=== PATIENT | male | born 1995 ===

== ENCOUNTER 2022-02-09 14:14 | Emergency (ER) | payer MEDICAID ==
[2022-02-09] MEDS ORDERED: LORazepam 2 MG/ML SDV ONE (14:22)
[2022-02-09] MEDS ORDERED: LORazepam 2 MG/ML SDV IVPUSH ONE (14:25)
[2022-02-09] MEDS ORDERED: Sodium Chloride 0.9% 1,000 ML IV ONE (14:26)
[2022-02-09 15:14] LABS: BLOOD UREA NITROGEN,BUN 13 mg/dL (7.0-18.0); CARBON DIOXIDE,CO2 12.5 mmol/L (21.0-32.0); CHLORIDE,CL 99 mmol/L (98-107); GLUCOSE RANDOM 90 mg/dL (74-106); SODIUM,NA 139 mmol/L (136-148)
[2022-02-09 15:26] LABS: ESTIMATED GFR 52 mL/min (>60)
[2022-02-09] MEDS ORDERED: Iopamidol 755 MG/ML 500 ML Multipack Bottle IVPUSH STA (16:14)
[2022-02-09] MEDS ORDERED: Lactated Ringers 1,000 ML IV ONE (17:11)
[2022-02-09 17:24] LABS: CORONAVIRUS COVID-19 NAA NEGATIVE (NEGATIVE); INFLUENZA A NAA NEGATIVE (NEGATIVE); INFLUENZA B NAA NEGATIVE (NEGATIVE); RESPIRATORY SYNCYTIAL VIR NAA NEGATIVE (NEGATIVE)
== END 2022-02-09 18:56 ==
LOC: MW.ED 14:14
DX: S80.811A Abrasion, right lower leg, initial encounter (principal); Z20.822 Contact with and (suspected) exposure to COVID-19; W17.89XA Other fall from one level to another, initial encounter
CPT/HCPCS: 0241U; 36415; 51702; 70450; 71045; 71260; 72125; 73030; 73100; 74177; 80053; 80305; 82550; 85025; 96361; 96374; 99285; J2060; J7030; J7120; Q9967

== ENCOUNTER 2022-02-10 17:32 | Emergency (ER) | payer OTHER | END 2022-02-10 19:32 | LOC: MW.ED 17:32 | DX: R41.82 Altered mental status, unspecified (principal) | CPT/HCPCS: 70450; 70450-26; 99284 ==

== ENCOUNTER 2022-02-26 14:13 | Emergency (ER) | payer MEDICAID ==
[2022-02-26] MEDS ORDERED: Lactated Ringers 1,000 ML IV STA ×2 (14:37→18:04)
[2022-02-26] MEDS ORDERED: Piperacillin/Tazobactam 4.5 GM in Sodium Chloride 0.9% 100 ML IV ONE (14:56)
[2022-02-26] MEDS ORDERED: Morphine 4 MG/ML Syringe IVPUSH STA (14:58)
[2022-02-26] MEDS ORDERED: VANCOmycin 1.5 GM/300 ML 1.5 GM in Premix Bag 1 BAG IV ONE (15:00)
[2022-02-26 15:46] LABS: CARBON DIOXIDE,CO2 28.9 mmol/L (21.0-32.0); POTASSIUM,K 4.1 mmol/L (3.5-5.1)
[2022-02-26 16:10] LABS: CORONAVIRUS COVID-19 NAA NEGATIVE (NEGATIVE); INFLUENZA A NAA NEGATIVE (NEGATIVE); INFLUENZA B NAA NEGATIVE (NEGATIVE); RESPIRATORY SYNCYTIAL VIR NAA NEGATIVE (NEGATIVE)
[2022-02-26] MEDS ORDERED: HYDROmorphone 2 MG/ML Syringe IVPUSH STA (17:50)
[2022-02-26] MEDS ORDERED: Clindamycin Phosphate in D5W 900 MG in Premix Bag 1 BAG IV ONE ×2 (18:04)
== END 2022-02-26 18:45 ==
LOC: MW.ED 14:13
DX: M72.6 Necrotizing fasciitis (principal); Z20.822 Contact with and (suspected) exposure to COVID-19
CPT/HCPCS: 0241U; 36415; 73700; 80053; 82803; 83605; 83735; 85025; 85610; 87040; 96365; 96367; 96368; 96375; 99285; J1170; J2270; J2543; J3370; J3490; J7120; 99291